=== PATIENT | male | born 1970 | race Caucasian/White ===

== ENCOUNTER 2016-12-17 19:43 | Emergency (ER) | payer SELFPAY ==
[~2016-12-17] VITALS: Ht 182.9 cm; Wt 102.5 kg
--- OUTSIDE RECORDS SUMMARY | 2016-12-17 19:49 | XMS REPORT ---
Author Author JULIO CESAR CAMPUZANO Organization [facility] Address [address] [place] [address] Care Team Providers Care Allergy Nurse Name Role Phone CAMPUZANO JULIO CESAR Unavailable PROBLEMS Type Condition ICD9-CM Code PTL43-QU Code Onset Dates Condition Status SNOMED Code Problem Numbness of right hand R20.0 Active 495916497 Assessment Numbness of right hand R20.0 Jan, Active 68804217 ALLERGIES Substance Reaction Event Type Date Status N.K.D.A. Unknown Non Drug Allergy Jan, Unknown SOCIAL HISTORY No smoking Hx information available PLAN OF CARE VITAL SIGNS Height 74.0 in 2016-01-11 Weight 240 lbs 2016-01-11 Heart Rate 90 bpm 2016-01-11 Respiratory Rate 18 2016-01-11 BMI 30.81 kg/m2 2016-01-11 Blood pressure systolic 130 mmHg 2016-01-11 Blood pressure diastolic 90 mmHg 2016-01-11 MEDICATIONS Unknown Medications RESULTS Name Result Date Reference Range MRI : Hand PROCEDURES Procedure Date Ordered Related Diagnosis Body Site Office Visit, Est Pt., Level 3 Jan 11, 2016 IMMUNIZATIONS No Known Immunizations
--- OUTSIDE RECORDS SUMMARY | 2016-12-17 19:49 | XMS REPORT ---
Author Author JON ECHOLS [facility] Address [address] [place] [address] Care Team Providers Care Chick Sexer Name Role Phone JON ECHOLS Unavailable PROBLEMS Type Condition ICD9-CM Code BOX49-PQ Code Onset Dates Condition Status SNOMED Code Problem Cubital tunnel syndrome on right G56.21 Active 94308851 Problem Numbness of right hand R20.0 Active 707642011 Assessment Other viral agents as the cause of diseases classified elsewhere B97.89 Jan, Active 362715298 Assessment Acute upper respiratory infection, unspecified J06.9 Jan, Active 069705769 ALLERGIES Substance Reaction Event Type Date Status N.K.D.A. Unknown Non Drug Allergy Jan, Unknown SOCIAL HISTORY No smoking Hx information available PLAN OF CARE VITAL SIGNS Height 74.0 in 2016-01-24 Weight 236 lbs 2016-01-24 Heart Rate 100 bpm 2016-01-24 Respiratory Rate 18 2016-01-24 BMI 30.30 kg/m2 2016-01-24 Blood pressure systolic 140 mmHg 2016-01-24 Blood pressure diastolic 80 mmHg 2016-01-24 MEDICATIONS Medication Instructions Dosage Frequency Start Date End Date Duration Status Tessalon Perles 100 MG Orally 3 times a day 1 capsule 8h Jan, Active PredniSONE 20 mg Orally Once a day 2 tablets 24h Jan, Jan, 05 days Active RESULTS No Results PROCEDURES Procedure Date Ordered Related Diagnosis Body Site Office Visit, Est Pt., Level 3 Jan 24, 2016 SOLUMEDROL (UP TO 125 MG) Jan 24, 2016 THER/PROPH/DIAG INJ, SC/IM Jan 24, 2016 IMMUNIZATIONS Vaccine Route Administration Date Status SOLUMEDROL (UP TO 125 MG) IM Intramuscular Jan 24, 2016 Administered
--- OUTSIDE RECORDS SUMMARY | 2016-12-17 19:49 | XMS REPORT ---
Author JUANIS Joe [facility] [place] [employer] Address Unknown Phone Unavailable Care Team Providers Care Graduate Assistant Athletic Trainer Name Role Phone JUANIS GAVIN CP Unavailable Allergies No Known Allergies Problems Problem Type Condition Code Onset Dates Condition Status Problem Gastroesophageal reflux disease with esophagitis K21.0 Active Problem Cubital tunnel syndrome on right G56.21 Active Problem Iron deficiency anemia, unspecified iron deficiency anemia type D50.9 Active Problem Numbness of right hand R20.0 Active Assessment Cubital tunnel syndrome on right G56.21 Active Medications No Known Medications Procedures Procedure Coding System Code Date Office Visit, Est Pt., Level 3 CPT-4 71570 Feb 08, 2016 Vital Signs Date/Time: Feb 08, 2016 Blood Pressure Diastolic 86 mmHg Blood Pressure Systolic 123 mmHg Height 74.0 in Results No Known Results Summary Purpose eClinicalWorks Submission
--- OUTSIDE RECORDS SUMMARY | 2016-12-17 19:49 | XMS REPORT ---
Author JON Perez Organization [employer] Address Unknown Phone Unavailable Care Team Providers Care Is Project Manager Name Role Phone JON ECHOLS CP Unavailable Allergies No Known Allergies Problems Problem Type Condition Code Onset Dates Condition Status Problem Numbness of right hand R20.0 Active Problem Cubital tunnel syndrome on right G56.21 Active Medications No Known Medications Results No Known Results Summary Purpose eClinicalWorks Submission
[2016-12-17] MEDS ORDERED: TRAM50TA2 (19:55)
[2016-12-17] MEDS ORDERED: CEPH500C (19:55)
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
[2016-12-17 20:17] LABS: BASOPHILS % (AUTO) 0 % (0-10); EOSINOPHILS # (AUTO) 0.1 10^3/uL (0.0-0.3); EOSINOPHILS % (AUTO) 1 % (0-10); LYMPHOCYTES # (AUTO) 2.6 X 10^3 (1.0-4.0); LYMPHOCYTES % (AUTO) 34 % (12-44); MEAN CORPUSCULAR HEMOGLOBIN 20 PG (25-34); MEAN CORPUSCULAR HGB CONC 33 G/DL (32-36); MEAN CORPUSCULAR VOLUME 61 FL (80-99); MEAN PLATELET VOLUME 9.5 FL (7.4-10.4); MONOCYTES % (AUTO) 12 % (0-12); NEUTROPHILS # (AUTO) 4.1 X 10^3 (1.8-7.8); NEUTROPHILS % (AUTO) 53 % (42-75); PLATELET COUNT 290 10^3/uL (130-400); RED BLOOD COUNT 5.19 10^6/uL (4.35-5.85); RED CELL DISTRIBUTION WIDTH 18.6 % (10.0-14.5); WHITE BLOOD COUNT 7.7 10^3/uL (4.3-11.0)
[2016-12-17 20:36] LABS: ALBUMIN 4.1 GM/DL (3.2-4.5); BILIRUBIN,TOTAL 0.6 MG/DL (0.1-1.0); CREATININE SERUM 1.37 MG/DL (0.60-1.30); POTASSIUM 3.8 MMOL/L (3.6-5.0); TOTAL PROTEIN 7.1 GM/DL (6.4-8.2); hs C REACTIVE PROTEIN 3.08 MG/DL (0.00-0.50)
--- NOTE | 2016-12-17 20:57 | Diagnostic Imaging Report ---
INDICATION: Soft tissue abscess. COMPARISON: None. FINDINGS: Three views of the right hand show no fractures, dislocations, or other acute bony abnormalities identified. Joint spaces are well maintained throughout. The soft tissues appear unremarkable. No radiopaque foreign bodies are identified. IMPRESSION: No acute fractures or dislocations of the right hand. Dictated by: Dictated on workstation # [id number]
[2016-12-17] MEDS ORDERED: LIDOCAINE 1% INJ 20 ML (XYLOCAINE) VIAL INJ STA (21:29)
[2016-12-17] MEDS ORDERED: CLINDAMYCIN INJECTION 900 MG in NS (IVPB) 50 ML IV ONE (21:30)
[2016-12-17] MEDS ORDERED: NS IV 1000 ML 1,000 ML IV ONE (21:31)
[2016-12-17] MEDS ORDERED: SULF1TAB35 PO (21:33)
[2016-12-17 22:15] VITALS: BP 124/84
== END 2016-12-17 22:15 | disposition home or self-care (01) ==
LOC: EDUNIT# 19:43 → ER 19:46
DX: L02.511 Cutaneous abscess of right hand (principal); F17.210 Nicotine dependence, cigarettes, uncomplicated
CPT/HCPCS: 36415; 73130; 80053; 85025; 86141; 87070; 87205; 96361; 96365

== ENCOUNTER 2018-05-11 15:09 | Emergency (ER) | payer SELFPAY ==
[~2018-05-11] VITALS: Ht 182.9 cm; Wt 108.9 kg
[~2018-05-11 15:09] MED LIST: CEPH500C; SULF1TAB35 PO; TRAM50TA2
--- OUTSIDE RECORDS SUMMARY | 2018-05-11 15:40 | XMS REPORT ---
Author Author MIYA PATRICIA [facility] Address [address] [place] [address] Care Team Providers Care Workers Compensation Paralegal Name Role Phone MIYA PATRICIA Unavailable PROBLEMS Type Condition ICD9-CM Code WYR44-QM Code Onset Dates Condition Status SNOMED Code Problem Gastroesophageal reflux disease with esophagitis K21.0 Active 563303159 Problem Iron deficiency anemia, unspecified iron deficiency anemia type D50.9 Active 85063024 Problem Cubital tunnel syndrome on right G56.21 Active 37589146 Problem Numbness of right hand R20.0 Active 041232761 ALLERGIES No Known Allergies ENCOUNTERS Encounter Location Date Diagnosis [facility] IN [facility] [address] [address] September, Eczema, unspecified type L30.9 and Cellulitis of unspecified part of limb L03.119 [place] [address] [address] 16 Dec, 2016 Abscess, hand L02.519 [place] [address] [address] 14 Dec, 2016 Cellulitis of hand L03.119 [facility] [address] [address] 31 Jul, 2016 Phlebitis I80.9 [place] [address] [address] Jul, [place] [address] [address] Apr, Cough R05 and Pneumonia of right lung due to infectious organism, unspecified part of lung J18.9 [place] [address] [place] [address] Feb, Cubital tunnel syndrome on right G56.21 [place] [address] [place] [id number] [place] [address] Feb, Pneumonia of left lower lobe due to Mycoplasma pneumoniae J15.7 and Gastroesophageal reflux disease with esophagitis K21.0 [place] [address] [place] [id number] [place] [address] Feb, [place] [address] [place] [id number] [place] [address] Jan, Upper respiratory tract infection, unspecified type J06.9 [facility] [address] [place] [id number] [place] [address] Jan, Other viral agents as the cause of diseases classified elsewhere B97.89 and Acute upper respiratory infection, unspecified J06.9 [place] [address] [place] [id number] [place] [address] Jan, Numbness of right hand R20.0 [place] [address] [place] [id number] [place] [address] Dec, Numbness of right hand R20.0 [place] [address] [place] [id number] [place] [address] Feb, [place] [address] [place] [address] Feb, IMMUNIZATIONS No Known Immunizations SOCIAL HISTORY Never Assessed REASON FOR VISIT Right hand swelling and redness started a few days ago JStrasserRN PLAN OF CARE Activity Details Follow Up prn Reason: VITAL SIGNS Height 74.0 in 2017-09-06 Weight 241.2 lbs 2017-09-06 Temperature 97.1 degrees Fahrenheit 2017-09-06 Heart Rate 80 bpm 2017-09-06 Respiratory Rate 20 2017-09-06 BMI 30.96 kg/m2 2017-09-06 Blood pressure systolic 130 mmHg 2017-09-06 Blood pressure diastolic 88 mmHg 2017-09-06 MEDICATIONS Medication Instructions Dosage Frequency Start Date End Date Duration Status Ultram 50 mg Orally every 6 hrs 1 tablet as needed 6h 14 Dec, 2016 Not-Taking Marcelo Multivitamin for Men - Not-Taking Bactrim DS 800-160 MG Orally Twice a day 1 tablet 12h September, 10 days Active Bactrim DS 800-160 MG Orally Twice a day 1 tablet 12h Not-Taking Tessalon Perles 100 MG Orally 3 times a day 2 capsule as needed 8h 21 Jan, 2016 Not-Taking Zantac 75 75 MG Orally Twice a day 1 tablet as needed 12h 06 Feb, 2016 Not-Taking Promethazine-Codeine 6.25-10 MG/5ML Orally every 6 hrs 5 ml as needed 6h 19 Apr, 2016 Not-Taking RESULTS No Results PROCEDURES No Known procedures INSTRUCTIONS MEDICATIONS ADMINISTERED No Known Medications MEDICAL (GENERAL) HISTORY Type Description Date Medical History Thalassemia Surgical History Right knee reshaped knee cap and meniscus repair x 2
--- OUTSIDE RECORDS SUMMARY | 2018-05-11 15:40 | XMS REPORT ---
Author Author DELISA HAMILTON Organization [facility] Address [address] [place] [address] Care Team Providers Care Firefighter Type One Name Role Phone DELISA HAMILTON Unavailable PROBLEMS Type Condition ICD9-CM Code BTS85-MF Code Onset Dates Condition Status SNOMED Code Problem Gastroesophageal reflux disease with esophagitis K21.0 Active 327902593 Problem Iron deficiency anemia, unspecified iron deficiency anemia type D50.9 Active 38258739 Problem Cubital tunnel syndrome on right G56.21 Active 17155970 Problem Numbness of right hand R20.0 Active 745052725 ALLERGIES Substance Reaction Event Type Date Status Bactrim DS Unknown Drug Allergy Mar, Active ENCOUNTERS Encounter Location Date Diagnosis [place] [id number] [address] Mar, 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 and Encounter for physical examination of prospective pot holder binder Z02.[address] [address] September, Eczema, unspecified type L30.9 and Cellulitis of unspecified part of limb L03.119 [place] [id number] [place] [address] Dec, Abscess, hand L02.519 [place] [address] [place] [id number] [place] [address] 14 Dec, 2016 Cellulitis of hand L03.119 [place] [address] [address] Jul, Phlebitis I80.9 [place] [id number] [place] [address] Jul, [place] [id number] [place] [address] Apr, Cough R05 and Pneumonia of right lung due to infectious organism, unspecified part of lung J18.9 [place] [address] [place] [id number] [place] [address] Feb, Cubital tunnel syndrome on right G56.21 [place] [address] [place] [id number] [place] [address] Feb, Pneumonia of left lower lobe due to Mycoplasma pneumoniae J15.7 and Gastroesophageal reflux disease with esophagitis K21.0 [place] [address] [place] [id number] [place] [address] Feb, [place] [address] [place] [id number] [place] [address] Jan, Upper respiratory tract infection, unspecified type J06.9 [facility] [address] [place] [id number] [place] [address] Jan, Other viral agents as the cause of diseases classified elsewhere B97.89 and Acute upper respiratory infection, unspecified J06.9 [place] [address] [place] [id number] [place] [address] Jan, Numbness of right hand R20.0 [place] [address] [place] [id number] [place] [address] Dec, Numbness of right hand R20.0 [place] [address] [place] [id number] [place] [address] Feb, [place] [address] [place] [address] Feb, IMMUNIZATIONS No Known Immunizations SOCIAL HISTORY Never Assessed REASON FOR VISIT Establish Care-jane,RMA, pt needs a physical for foster care PLAN OF CARE Activity Details Follow Up prn Reason: VITAL SIGNS Height 74.0 in 2018-03-12 Weight 240.0 lbs 2018-03-12 Temperature 97.5 degrees Fahrenheit 2018-03-12 Heart Rate 86 bpm 2018-03-12 Respiratory Rate 20 2018-03-12 Oximetry on room air:95 % 2018-03-12 BMI 30.81 kg/m2 2018-03-12 Blood pressure systolic 140 mmHg 2018-03-12 Blood pressure diastolic 92 mmHg 2018-03-12 MEDICATIONS No Known Medications RESULTS No Results PROCEDURES No Known procedures INSTRUCTIONS MEDICATIONS ADMINISTERED No Known Medications MEDICAL (GENERAL) HISTORY Type Description Date Medical History Thalassemia Surgical History Right knee reshaped knee cap and meniscus repair x 2
--- OUTSIDE RECORDS SUMMARY | 2018-05-11 15:40 | XMS REPORT ---
Author Author JON ECHOLS [facility] Address [address] [place] [address] Care Team Providers Care Marine Radio Installer And Servicer Name Role Phone KINZA JON Unavailable PROBLEMS Type Condition ICD9-CM Code IXI61-UF Code Onset Dates Condition Status SNOMED Code Problem Gastroesophageal reflux disease with esophagitis K21.0 Active 468000577 Problem Iron deficiency anemia, unspecified iron deficiency anemia type D50.9 Active 14996022 Problem Cubital tunnel syndrome on right G56.21 Active 71106307 Problem Numbness of right hand R20.0 Active 341165754 ALLERGIES No Known Allergies SOCIAL HISTORY Never Assessed PLAN OF CARE VITAL SIGNS Height 74.0 in 2016-01-26 Weight 237.8 lbs 2016-01-26 Temperature 98.5 degrees Fahrenheit 2016-01-26 Heart Rate 100 bpm 2016-01-26 Respiratory Rate 26 2016-01-26 Oximetry 92 % 2016-01-26 BMI 30.53 kg/m2 2016-01-26 Blood pressure systolic 137 mmHg 2016-01-26 Blood pressure diastolic 86 mmHg 2016-01-26 MEDICATIONS Medication Instructions Dosage Frequency Start Date End Date Duration Status PredniSONE 20 mg Orally Once a day 2 tablets 24h Jan, Jan, 05 days Active Tessalon Perles 100 MG Orally 3 times a day 2 capsule as needed 8h Jan, Active Levaquin 500 MG Orally Once a day 1 tablet 24h Jan, Jan, 07 days Active RESULTS Name Result Date Reference Range CBC 2016-01-26 WBC 17.1 3.4-10.8 RBC 5.18 4.14-5.80 Hemoglobin 10.2 12.6-17.7 Hematocrit 32.9 37.5-51.0 MCV 64 79-97 MCH 19.7 26.6-33.0 MCHC 31.0 31.5-35.7 RDW 17.5 12.3-15.4 Platelets 348 150-379 Neutrophils 89 Lymphs 6 Monocytes 5 Eos 0 Basos 0 Immature Cells Neutrophils (Absolute) 15.2 1.4-7.0 Lymphs (Absolute) 1.0 0.7-3.1 Monocytes(Absolute) 0.9 0.1-0.9 Eos (Absolute) 0.0 0.0-0.4 Baso (Absolute) 0.0 0.0-0.2 Immature Granulocytes 0 Immature Grans (Abs) 0.0 0.0-0.1 NRBC Hematology Comments: Xray : Chest (IN HOUSE) 2016-01-26 PROCEDURES Procedure Date Ordered Result Body Site MEASURE BLOOD OXYGEN LEVEL Jan 26, 2016 CHEST X-RAY Jan 26, 2016 THER/PROPH/DIAG INJ, SC/IM Jan 26, 2016 VENIPUNCT, ROUTINE* Jan 26, 2016 ROCEPHIN 1 GM (IM) Jan 26, 2016 COMPLETE CBC W/AUTO DIFF WBC Jan 26, 2016 IMMUNIZATIONS Vaccine Route Administration Date Status ROCEPHIN 1 GM (IM) IM Intramuscular Jan 26, 2016 Administered MEDICAL (GENERAL) HISTORY Type Description Date Medical History Thalassemia Surgical History Right knee reshaped knee cap and meniscus repair x 2
--- OUTSIDE RECORDS SUMMARY | 2018-05-11 15:40 | XMS REPORT ---
Author Author JULIO CESAR CAMPUZANO [facility] Address [address] [place] [address] Care Team Providers Care Filler Feeder Name Role Phone RAH CAMPUZANONETTE Unavailable PROBLEMS Type Condition ICD9-CM Code TTT17-FB Code Onset Dates Condition Status SNOMED Code Problem Iron deficiency anemia, unspecified iron deficiency anemia type D50.9 Active 49813108 Problem Gastroesophageal reflux disease with esophagitis K21.0 Active 712256773 Problem Cubital tunnel syndrome on right G56.21 Active 26988297 Problem Numbness of right hand R20.0 Active 218620331 ALLERGIES Substance Reaction Event Type Date Status N.K.D.A. Unknown Non Drug Allergy Apr, Unknown SOCIAL HISTORY No smoking Hx information available PLAN OF CARE Activity Details Follow Up 2 Weeks Reason: VITAL SIGNS Height 74.0 in 2016-04-22 Weight 236.2 lbs 2016-04-22 Temperature 98.2 degrees Fahrenheit 2016-04-22 Heart Rate 107 bpm 2016-04-22 Respiratory Rate 20 2016-04-22 Oximetry 94 % 2016-04-22 BMI 30.32 kg/m2 2016-04-22 Blood pressure systolic 134 mmHg 2016-04-22 Blood pressure diastolic 80 mmHg 2016-04-22 MEDICATIONS Medication Instructions Dosage Frequency Start Date End Date Duration Status Azithromycin 250 MG Orally Once a day 2 tablets on the first day, then 1 tablet daily for 4 days 24h Apr, Apr, 5 day(s) Active Promethazine-Codeine 6.25-10 MG/5ML Orally every 6 hrs 5 ml as needed 6h Apr, Active Cefdinir 300 MG Orally every 12 hrs 1 capsule 12h Apr, Apr, 10 day(s) Active RESULTS Name Result Date Reference Range CBC 2016-04-22 WBC 5.5 3.4-10.8 RBC 5.97 4.14-5.80 Hemoglobin 11.9 12.6-17.7 Hematocrit 36.4 37.5-51.0 MCV 61 79-97 MCH 19.9 26.6-33.0 MCHC 32.7 31.5-35.7 RDW 16.4 12.3-15.4 Platelets 309 150-379 Neutrophils 56 Lymphs 28 Monocytes 14 Eos 2 Basos 0 Immature Cells Neutrophils (Absolute) 3.1 1.4-7.0 Lymphs (Absolute) 1.5 0.7-3.1 Monocytes(Absolute) 0.8 0.1-0.9 Eos (Absolute) 0.1 0.0-0.4 Baso (Absolute) 0.0 0.0-0.2 Immature Granulocytes 0 Immature Grans (Abs) 0.0 0.0-0.1 NRBC Hematology Comments: MYCOPLASMA, IgM 2016-04-22 M pneumoniae IgM Abs <770 0-769 Xray : Chest (IN HOUSE) 2016-04-22 PROCEDURES Procedure Date Ordered Related Diagnosis Body Site MEASURE BLOOD OXYGEN LEVEL Apr 22, 2016 COMPLETE CBC W/AUTO DIFF WBC Apr 22, 2016 VENIPUNCT, ROUTINE* Apr 22, 2016 MYCOPLASMA ANTIBODY Apr 22, 2016 CHEST X-RAY Apr 22, 2016 Office Visit, Est Pt., Level 3 Apr 22, 2016 IMMUNIZATIONS No Known Immunizations
--- OUTSIDE RECORDS SUMMARY | 2018-05-11 15:40 | XMS REPORT ---
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 Name Role Phone JULIO CESAR CAMPUZANO Unavailable PROBLEMS Type Condition ICD9-CM Code QNY27-IV Code Onset Dates Condition Status SNOMED Code Problem Gastroesophageal reflux disease with esophagitis K21.0 Active 670063981 Problem Iron deficiency anemia, unspecified iron deficiency anemia type D50.9 Active 20465077 Problem Cubital tunnel syndrome on right G56.21 Active 65240479 Problem Numbness of right hand R20.0 Active 879184049 ALLERGIES No Information SOCIAL HISTORY Never Assessed PLAN OF CARE VITAL SIGNS MEDICATIONS Medication Instructions Dosage Frequency Start Date End Date Duration Status Levaquin 500 mg Orally Once a day 1 tablet 24h Jul, Jul, 10 day(s) Active RESULTS No Results PROCEDURES No Known procedures IMMUNIZATIONS No Known Immunizations MEDICAL (GENERAL) HISTORY Type Description Date Medical History Thalassemia Surgical History Right knee reshaped knee cap and meniscus repair x 2
--- OUTSIDE RECORDS SUMMARY | 2018-05-11 15:41 | XMS REPORT | Continuity of Care Document ---
Author Author [facility] Address Unknown Phone Unavailable Allergies Active Description Code Type Severity Reaction Onset Reported/Identified Relationship to Patient Clinical Status Yes No Known Drug Allergies [id number] Drug Allergy Unknown N/A 12/17/2016 Medications There is no data. Problems Date Dx Coded Attending Type Code Diagnosis Diagnosed By 12/17/2016 SHIRLENE MALDONADO Ot F17.210 NICOTINE DEPENDENCE, CIGARETTES, UNCOMPL 12/17/2016 SHIRLENE MALDONADO Ot L02.511 CUTANEOUS ABSCESS OF RIGHT HAND 12/20/2016 SHIRLENE MALDONADO Ot F17.210 NICOTINE DEPENDENCE, CIGARETTES, UNCOMPL 12/20/2016 SHIRLENE MALDONADO Ot L02.511 CUTANEOUS ABSCESS OF RIGHT HAND 12/23/2016 SHIRLENE MALDONADO Ot F17.210 NICOTINE DEPENDENCE, CIGARETTES, UNCOMPL 12/23/2016 SHIRLENE MALDONADO Ot L02.511 CUTANEOUS ABSCESS OF RIGHT HAND 02/15/2017 SHIRLENE MALDONADO Ot F17.210 NICOTINE DEPENDENCE, CIGARETTES, UNCOMPL 02/15/2017 SHIRLENE MALDONADO Ot L02.511 CUTANEOUS ABSCESS OF RIGHT HAND Procedures There is no data. Results Test Result Range CBC With Differential/Platelet - 01/26/16 12:17 WBC 17.1 x10E3/uL 3.4-10.8 RBC 5.18 x10E6/uL 4.14-5.80 Hemoglobin 10.2 g/dL 12.6-17.7 Hematocrit 32.9 % 37.5-51.0 MCV 64 fL 79-97 MCH 19.7 pg 26.6-33.0 MCHC 31.0 g/dL 31.5-35.7 RDW 17.5 % 12.3-15.4 Platelets 348 x10E3/uL 150-379 Neutrophils 89 % Lymphs 6 % Monocytes 5 % Eos 0 % Basos 0 % Neutrophils (Absolute) 15.2 x10E3/uL 1.4-7.0 Lymphs (Absolute) 1.0 x10E3/uL 0.7-3.1 Monocytes(Absolute) 0.9 x10E3/uL 0.1-0.9 Eos (Absolute) 0.0 x10E3/uL 0.0-0.4 Baso (Absolute) 0.0 x10E3/uL 0.0-0.2 Immature Granulocytes 0 % Immature Grans (Abs) 0.0 x10E3/uL 0.0-0.1 Mycoplasma pneumoniae, IgM Ab - 04/22/16 15:02 M pneumoniae IgM Abs <770 U/mL 0-769 CBC With Differential/Platelet - 04/22/16 15:02 WBC 5.5 x10E3/uL 3.4-10.8 RBC 5.97 x10E6/uL 4.14-5.80 Hemoglobin 11.9 g/dL 12.6-17.7 Hematocrit 36.4 % 37.5-51.0 MCV 61 fL 79-97 MCH 19.9 pg 26.6-33.0 MCHC 32.7 g/dL 31.5-35.7 RDW 16.4 % 12.3-15.4 Platelets 309 x10E3/uL 150-379 Neutrophils 56 % Lymphs 28 % Monocytes 14 % Eos 2 % Basos 0 % Neutrophils (Absolute) 3.1 x10E3/uL 1.4-7.0 Lymphs (Absolute) 1.5 x10E3/uL 0.7-3.1 Monocytes(Absolute) 0.8 x10E3/uL 0.1-0.9 Eos (Absolute) 0.1 x10E3/uL 0.0-0.4 Baso (Absolute) 0.0 x10E3/uL 0.0-0.2 Immature Granulocytes 0 % Immature Grans (Abs) 0.0 x10E3/uL 0.0-0.1 CBC With Differential/Platelet - 12/16/16 15:13 WBC 8.2 x10E3/uL 3.4-10.8 RBC 5.54 x10E6/uL 4.14-5.80 Hemoglobin 11.1 g/dL 12.6-17.7 Hematocrit 34.5 % 37.5-51.0 MCV 62 fL 79-97 MCH 20.0 pg 26.6-33.0 MCHC 32.2 g/dL 31.5-35.7 RDW 17.8 % 12.3-15.4 Platelets 323 x10E3/uL 150-379 Neutrophils 76 % Lymphs 16 % Monocytes 8 % Eos 0 % Basos 0 % Neutrophils (Absolute) 6.2 x10E3/uL 1.4-7.0 Lymphs (Absolute) 1.3 x10E3/uL 0.7-3.1 Monocytes(Absolute) 0.7 x10E3/uL 0.1-0.9 Eos (Absolute) 0.0 x10E3/uL 0.0-0.4 Baso (Absolute) 0.0 x10E3/uL 0.0-0.2 Immature Granulocytes 0 % Immature Grans (Abs) 0.0 x10E3/uL 0.0-0.1 Aerobic Bacterial Culture - 12/16/16 15:13 Aerobic Bacterial Culture Note Complete blood count (CBC) with automated white blood cell (WBC) differential - 12/17/16 20:05 Blood leukocytes automated count (number/volume) 7.7 10*3/uL 4.3-11.0 Blood erythrocytes automated count (number/volume) 5.19 10*6/uL 4.35-5.85 Venous blood hemoglobin measurement (mass/volume) 10.5 g/dL 13.3-17.7 Blood hematocrit (volume fraction) 32 % 40-54 Automated erythrocyte mean corpuscular volume 61 [foz_us] 80-99 Automated erythrocyte mean corpuscular hemoglobin (mass per erythrocyte) 20 pg 25-34 Automated erythrocyte mean corpuscular hemoglobin concentration measurement ( mass/volume) 33 g/dL 32-36 Automated erythrocyte distribution width ratio 18.6 % 10.0-14.5 Automated blood platelet count (count/volume) 290 10*3/uL 130-400 Automated blood platelet mean volume measurement 9.5 [foz_us] 7.4-10.4 Automated blood neutrophils/100 leukocytes 53 % 42-75 Automated blood lymphocytes/100 leukocytes 34 % 12-44 Blood monocytes/100 leukocytes 12 % 0-12 Automated blood eosinophils/100 leukocytes 1 % 0-10 Automated blood basophils/100 leukocytes 0 % 0-10 Blood neutrophils automated count (number/volume) 4.1 10*3 1.8-7.8 Blood lymphocytes automated count (number/volume) 2.6 10*3 1.0-4.0 Blood monocytes automated count (number/volume) 1.0 10*3 0.0-1.0 Automated eosinophil count 0.1 10*3/uL 0.0-0.3 Automated blood basophil count (count/volume) 0.0 10*3/uL 0.0-0.1 Comprehensive metabolic panel - 12/17/16 20:05 Serum or plasma sodium measurement (moles/volume) 140 mmol/L 135-145 Serum or plasma potassium measurement (moles/volume) 3.8 mmol/L 3.6-5.0 Serum or plasma chloride measurement (moles/volume) 106 mmol/L 98-107 Carbon dioxide 24 mmol/L 21-32 Serum or plasma anion gap determination (moles/volume) 10 mmol/L 5-14 Serum or plasma urea nitrogen measurement (mass/volume) 17 mg/dL 7-18 Serum or plasma creatinine measurement (mass/volume) 1.37 mg/dL 0.60-1.30 Serum or plasma urea nitrogen/creatinine mass ratio 12 NRG Serum or plasma creatinine measurement with calculation of estimated glomerular filtration rate 56 NRG Serum or plasma glucose measurement (mass/volume) 108 mg/dL 70-105 Serum or plasma calcium measurement (mass/volume) 9.0 mg/dL 8.5-10.1 Serum or plasma total bilirubin measurement (mass/volume) 0.6 mg/dL 0.1-1.0 Serum or plasma alkaline phosphatase measurement (enzymatic activity/volume) 55 U/L 40-136 Serum or plasma aspartate aminotransferase measurement (enzymatic activity/ volume) 19 U/L 5-34 Serum or plasma alanine aminotransferase measurement (enzymatic activity/volume ) 14 U/L 0-55 Serum or plasma protein measurement (mass/volume) 7.1 g/dL 6.4-8.2 Serum or plasma albumin measurement (mass/volume) 4.1 g/dL 3.2-4.5 Serum or plasma C reactive protein measurement (mass/volume) - 12/17/16 20:05 Serum or plasma C reactive protein measurement (mass/volume) 3.08 mg /dL 0.00-0.50 Gram stain microscopy - 12/17/16 22:10 GRAM STAIN RESULT NO WBC'S OR BACTERIA OBSERVED NRG Bacteria identification in wound by culture - 12/17/16 22:10 Bacteria identification in wound by culture NG NRG Encounters ACCT No. Visit Date/Time Discharge Status Pt. Type Provider Facility Loc./Unit Complaint [id number] 09/06/2017 10:40:00 09/06/2017 23:59:59 CLS Outpatient [facility] [id number] 04/25/2016 05:05:00 Document Registration [id number] 01/27/2016 08:06:00 Document Registration [id number] 12/17/2016 19:46:00 12/17/2016 22:15:00 DIS Emergency SHIRLENE MALDONADO Via [facility] ER R ARM WOUND/RED STREAK [id number] 04/23/2016 08:06:00 Document Registration [id number] 12/17/2016 08:06:00 Document Registration [id number] 12/19/2016 12:08:00 Document Registration
--- NOTE | 2018-05-11 16:35 | ED Lower Extremity ---
General Chief Complaint: Lower Extremity Stated Complaint: RT KNEE PAIN Nursing Triage Note: PATIENT HERE FOR RIGHT KNEE PAIN. HE HAS A HISTORY OF KNEE PROBLEMS FOR THE LAST APPROXIMATELY 20 YEARS. TODAY HE STEPPED OFF A LADDER AND HEARD IT POP. Nursing Sepsis Screen: No Definite Risk Source: patient, spouse Exam Limitations: no limitations History of Present Illness Date Seen by Provider: May 11, 2018 Time Seen by Provider: 16:19 Initial Comments The patient presents to ER by private conveyance with chief complaint of about 7 or 8:00 this morning he was stepping down off the ladder and as he stepped backwards he felt a popping sensation in his right knee and had a severe amount of pain that landed him on the ground. He put his knee brace on and is had difficulty ambulating since. He has a history of 10 years ago a surgeon did 2 different scopes on his knee. They talked about doing a repair of his anterior cruciate ligament but he had not done it. He since that time is just been wearing his knee brace most days and using ibuprofen. When ibuprofen doesn't work sometimes he uses tramadol. He does not want to use any hydrocodone or oxycodone. He's not having a lot of swelling of his knee nor is he having any loss of sensation to his foot. Not on blood thinners. Allergies and Home Medications Allergies Coded Allergies: No Known Drug Allergies (Unverified , 12/17/16) Home Medications Sulfamethoxazole/Trimethoprim 1 Each Tablet, 1 EACH PO BID Prescribed by: SHIRLENE EMERY on 12/17/16 9791 Patient Home Medication List Home Medication List Reviewed: Yes Review of Systems Constitutional: No chills, No fever EENTM: No ear discharge, No ear pain Respiratory: No cough, No short of breath Cardiovascular: No chest pain, No edema Gastrointestinal: No abdominal pain, No constipation Genitourinary: No discharge, No dysuria Past Uxncibh-Bruwpn-Arsfup Hx Patient Social History Alcohol Use: Denies Use Recreational Drug Use: No Smoking Status: Current Everyday Smoker Type Used: Cigarettes 2nd Hand Smoke Exposure: Yes Recent Foreign Travel: No Contact w/Someone Who Travel: No Recent Infectious Disease Expo: No Recent Hopitalizations: No Physical Abuse: No Sexual Abuse: No Immunizations Up To Date Tetanus Booster (TDap): Less than 5yrs Seasonal Allergies Seasonal Allergies: No Past Medical History Surgeries: Yes Orthopedic Respiratory: No Cardiac: No Neurological: No Genitourinary: No Gastrointestinal: No Musculoskeletal: No Endocrine: No HEENT: No Cancer: No Psychosocial: No Integumentary: No Blood Disorders: No Adverse Reaction/Blood Tranf: No Family Medical History Other Conditions/Hx Physical Exam Vital Signs Vital Signs - First Documented 05/11/18 15:14 Temp 97.9 Pulse 100 Resp 20 B/P (MAP) 155/83 (107) Pulse Ox 95 Capillary Refill : Less Than 3 Seconds Height, Weight, BMI Height: 6'0" Weight: 240lbs. 0oz. 108.144317tr; BMI Method:Stated General Appearance: WD/WN, mild distress HEENT: PERRL/EOMI, pharynx normal Cardiovascular: normal peripheral pulses, regular rate, rhythm, no edema Respiratory: no respiratory distress, no accessory muscle use Hips: bilateral hip non-tender, bilateral hip normal inspection, bilateral hip normal range of motion, bilateral hip no evidence of injury Knees: bilateral knee non-tender; left knee normal inspection; bilateral knee normal range of motion; left knee no evidence of injury; right knee joint effusion (mild. Patella is non-ballotable), right knee pain, right knee other ( pain and anterior drawer test. MCL and LCL are tight.) Ankles: bilateral ankle non-tender, bilateral ankle normal inspection, bilateral ankle normal range of motion, bilateral ankle no evidence of injury Neurologic/Tendon: normal sensation, normal motor functions Neurologic/Psychiatric: no motor/sensory deficits, alert, normal mood/affect, oriented x 3 Skin: normal color, warm/dry Progress/Results/Core Measures Results/Orders My Orders Orders - ELISA HDZ Tramadol Tablet (Ultram Tablet) (05/11/18 16:30) Knee, Right, 3 Views (05/11/18 16:27) Vital Signs/I&O 05/11/18 15:14 Temp 97.9 Pulse 100 Resp 20 B/P (MAP) 155/83 (107) Pulse Ox 95 Blood Pressure Mean: 107 Progress Progress Note : Time: 16:33 Progress Note Suspect possible anterior cruciate ligament sprain. We'll given tramadol for pain. He's declined a shot of Toradol. We'll get an x-ray for baseline of his knee and then refer him to orthopedic surgery. Diagnostic Imaging Diagonstic Imaging: Xray Plain Films/CT/US/NM/MRI: knee Comments [facility] [place], [place] NAME: DEBORAH [facility]ERNIGAN [facility] REC#: [id number] PT STATUS: REG ER : 1970 PHYSICIAN: ELISA HDZ MD ADMIT DATE: 05/11/18/ER Draft Date of Exam:05/11/18 KNEE, RIGHT, 3 VIEWS INDICATION: He stepped off a ladder and heard his knee "pop." EXAM: AP, oblique, and lateral views of the right knee are obtained. FINDINGS: No fracture or acute bony abnormality is seen. Joint spaces are unremarkable. There appears to be a small joint effusion. IMPRESSION: No acute bony abnormality of the right knee. There appears to be a small joint effusion. Dictated on workstation # [id number] Dict: 05/11/18 1651 Trans: 05/11/18 1716 [facility] [id number] Interpreted by: CARLY DAHL MD Electronically signed by: Reviewed: Reviewed by Me Departure Impression Primary Impression: Sprain of knee Qualified Codes: S83.511A - Sprain of anterior cruciate ligament of right knee , initial encounter Disposition: HOME, SELF-CARE Condition: Stable Departure-Patient Inst. Decision time for Depature: 17:23 Referrals: [facility] (PCP) Primary Care Physician JULIO CESAR CAMPUZANO (Family) Primary Care Physician PIERRE CHACON MD Patient Instructions: Knee Sprain (DC) Add. Discharge Instructions: Call Dr. Chacon's clinic tomorrow and make an appointment to be followed up within the next week or so. Wear your knee brace and use a knee sleeve or Jamarcus wrap for compression. Use Tylenol and ibuprofen for pain. Tramadol for breakthrough pain. All discharge instructions reviewed with patient and/or family. Voiced understanding. Scripts Tramadol HCl (Tramadol HCl) 50 Mg Tablet 50 MG PO Q6H PRN for PAIN, #20 TAB 0 Refills Prov: ELISA HDZ 05/11/18 Work/School Note: Work Release Form Date Seen in the Emergency Department: May 11, 2018 Return to Work: May 12, 2018 Restrictions: Need Release from Doctor Other Restrictions Listed Below: No climbing ladders. Light duty, minimalize use of right knee. Copy Copies To 1: PIERRE CHACON MD, TITUS J May 11, 2018 16:35
--- NOTE | 2018-05-11 17:16 | Diagnostic Imaging Report ---
INDICATION: He stepped off a ladder and heard his knee "pop." EXAM: AP, oblique, and lateral views of the right knee are obtained. FINDINGS: No fracture or acute bony abnormality is seen. Joint spaces are unremarkable. There appears to be a small joint effusion. IMPRESSION: No acute bony abnormality of the right knee. There appears to be a small joint effusion. Dictated by: Dictated on workstation # [id number]
[2018-05-11] MEDS ORDERED: TRAM50TA2 PO (17:24)
[2018-05-11 17:30] VITALS: BP 155/83
== END 2018-05-11 17:30 | disposition home or self-care (01) ==
LOC: EDUNIT# 15:09 → ER 15:10
DX: S83.511A Sprain of anterior cruciate ligament of right knee, initial encounter (principal); F17.210 Nicotine dependence, cigarettes, uncomplicated; X50.1XXA Overexertion from prolonged static or awkward postures, initial encounter
CPT/HCPCS: 73562

== ENCOUNTER 2022-03-28 19:07 | Emergency (ER) | payer BC ==
[~2022-03-28] VITALS: Ht 180 cm; Wt 105.0 kg
[~2022-03-28 19:07] MED LIST changes: -SULF1TAB35 PO; +SULF1TAB38 PO; -TRAM50TA2; +TRM50T; +TRM50T PO
[2022-03-28 19:16] VITALS: BP 152/80
[2022-03-28] MEDS ORDERED: TRAM50TA3 (19:16)
--- NOTE | 2022-03-28 20:31 | ED General ---
General Chief Complaint: Post OP Complications/Pain Stated Complaint: POST OP, BLEEDING Nursing Triage Note: C/O BLOOD BEHIND OPSITE FROM LAPROSCOPIC CHOLECYSTECTOMY AT [place] [facility] 03/27/22 Source of Information: Patient Exam Limitations: No Limitations History of Present Illness Date Seen by Provider: Mar 28, 2022 Time Seen by Provider: 20:20 Initial Comments Here with report of blood behind the OpSite from laparoscopic cholecystectomy done yesterday. This was done at [facility] in [place], [place]. Denies fever or any significant pain and denies being on pain medicine. Noted this morning that it was a little foggy and then this afternoon or evening he noted blood behind the OpSite. Does not look to be active bleeding. Denies other concerns. Timing/Duration: 4-6 Hours Severity: Mild Associated Systoms: No Fever/Chills, No Nausea/Vomiting Allergies and Home Medications Allergies Coded Allergies: No Known Drug Allergies (Unverified , 12/17/16) Patient Home Medication List Home Medication List Reviewed: Yes Tramadol HCl (Tramadol HCl) 50 Mg Tablet, (Reported) Entered as Reported by: JEOVANY FUNG on 03/28/221915 Last Action: New Order Discontinued Medications Cephalexin (Cephalexin) 500 Mg Capsule, (Reported) Discontinued Reason: No Longer Taking Entered as Reported by: JEOVANY FUNG on 12/17/161954 Last Action: Discontinued Sulfamethoxazole/Trimethoprim (Bactrim Ds Tablet) 1 Each Tablet, 1 EACH PO BID Discontinued Reason: No Longer Taking Prescribed by: SHIRLENE EMERY on 12/17/162132 Last Action: Discontinued Tramadol HCl (Tramadol HCl) 50 Mg Tablet, (Reported) Discontinued Reason: No Longer Taking Entered as Reported by: JEOVANY FUNG on 12/17/161954 Last Action: Discontinued Tramadol HCl (Tramadol HCl) 50 Mg Tablet, 50 MG PO Q6H PRN for PAIN Discontinued Reason: No Longer Taking Prescribed by: ELISA HDZ on 05/11/18 172 Last Action: Discontinued Review of Systems Review of Systems Constitutional: No fever Respiratory: no symptoms reported Cardiovascular: no symptoms reported Gastrointestinal: No nausea, No vomiting Skin: lesions (Postop wounds to abdomen which 2 are covered with OpSite with some blood behind OpSite.) Past Rtqbksj-Seagmf-Fyuvsp Hx Patient Social History Tobacco Use?: Yes Tobacco type used: Cigarettes Substance use?: No Alcohol Use?: No Pt feels they are or have been: No Immunizations Up To Date Tetanus Booster (TDap): Less than 5yrs First/Initial COVID19 Vaccinat: x2 Seasonal Allergies Seasonal Allergies: No Past Medical History Surgery/Hospitalization HX: cholecystectomy, right knee x3 Surgeries: Yes Gallbladder, Orthopedic Respiratory: No Cardiac: No Neurological: No Genitourinary: No Gastrointestinal: No Musculoskeletal: No Endocrine: No HEENT: No Cancer: No Psychosocial: No Integumentary: No Blood Disorders: No Adverse Reaction/Blood Tranf: No Family Medical History Reviewed Nursing Family Hx Other Conditions/Hx Physical Exam Vital Signs Vital Signs - First Documented 03/28/22 19:16 Temp 36.7 Pulse 89 Resp 16 B/P (MAP) 152/80 (104) Pulse Ox 94 O2 Delivery Room Air Capillary Refill : Less Than 3 Seconds Height, Weight, BMI Height: 6'0" Weight: 240lbs. 0oz. 108.717481ob; 32.00 BMI Method:Stated General Appearance: No Apparent Distress, WD/WN Respiratory: Lungs Clear, Normal Breath Sounds Cardiovascular: Regular Rate, Rhythm, No Murmur Gastrointestinal: Other (Postoperative wounds to periumbilical area, midline abdomen and right side secondary to laparoscopic cholecystectomy. 2 midline wounds have blood behind OpSite but do not appear to be actively bleeding.) Neurologic/Psychiatric: Alert, Oriented x3 Progress/Results/Core Measures Suspected Sepsis SIRS Temperature: Pulse: 89 Respiratory Rate: 16 Blood Pressure 152 /80 Mean: 104 Results/Orders Vital Signs/I&O 03/28/22 19:16 Temp 36.7 Pulse 89 Resp 16 B/P (MAP) 152/80 (104) Pulse Ox 94 O2 Delivery Room Air Capillary Refill : Less Than 3 Seconds Blood Pressure Mean: 104 Progress Note : Progress Note Seen and evaluated. Nursing to remove OpSite and clean wounds. 2121: Wounds evaluated after cleaning. Steri-Strips applied and covered with dry dressing. Discharged home with return precautions. Patient verbalized understanding of instructions and agreement with plan. Departure Impression Primary Impression: Postoperative bleeding from incision Disposition: 01 HOME, SELF-CARE Condition: Improved Departure-Patient Inst. Decision time for Depature: 21:22 Referrals: [facility] (PCP) Primary Care Physician JULIO CESAR CAMPUZANO (Family) Primary Care Physician Patient Instructions: Bleeding After Surgery Add. Discharge Instructions: You may change dressing as needed to wounds that had bleeding. It is okay to shower and gently spray wounds and pat dry. Do not scrub on wounds. Follow-up with your surgeon for recheck and further evaluation. Call surgeon's office tomorrow morning and let them know that you were seen and care that was provided. Follow additional instructions as given. Return for worse pain, persistent bleeding, increasing redness, foul-smelling drainage, fever or other concerns as needed. FRANCESCO ARROYO MD Mar 28, 2022 20:31
== END 2022-03-28 21:29 | disposition home or self-care (01) ==
LOC: EDUNIT# 19:07 → ER 19:10
DX: K91.840 Postprocedural hemorrhage of a digestive system organ or structure following a digestive system procedure (principal); F17.210 Nicotine dependence, cigarettes, uncomplicated